=== PATIENT | female | born 1985 | race Caucasian/White ===

== ENCOUNTER → 2018-05-15 14:47 | Outpatient (CLI) | payer BC, SELFPAY ==
[2018-05-18 14:30] LABS: HPV Reflexed? NOT INDICATED
== END ==
PROVIDERS: Visit Provider Obstetrics & Gynecology
DX: Z12.4 Encounter for screening for malignant neoplasm of cervix (principal); Z12.72 Encounter for screening for malignant neoplasm of vagina
CPT/HCPCS: 88175; G0145

== ENCOUNTER → 2018-08-16 11:49 | Outpatient (CLI) | payer BC, SELFPAY ==
[2018-08-16 15:34] LABS: Chlamydia Trachomatis by PCR Negative (Negative); Neisserai gonorrhoeae by PCR Negative (Negative); Probe Check PASS; Sample Adequacy Control PASS; Specimen Processing Control PASS
== END ==
PROVIDERS: Visit Provider Obstetrics & Gynecology
DX: Z32.01 Encounter for pregnancy test, result positive (principal); Z11.3 Encounter for screening for infections with a predominantly sexual mode of transmission
CPT/HCPCS: 87491; 87591

== ENCOUNTER → 2018-08-28 11:42 | Outpatient (CLI) | payer BC, SELFPAY ==
[2018-08-28 12:20] LABS: COTININE Drug Screen Positive (<200 ng/mL)
[2018-08-28 12:21] LABS: Absolute Neutrophil Count 7.3 X10^3/uL (2.0-7.7); Basophil# 0.03 X10^3/uL; Basophil% 0.3 % (0-1); Eosinophil# 0.11 X10^3/uL; Eosinophils% 1.1 % (0-5); Hematocrit 39.9 % (37-47); Hemoglobin 13.4 g/dl (12.0-15.0); Lymphocyte % 21.7 % (19-41); Mean Corp Hgb Conc 33.6 g/gl (32-36); Mean Corpuscular Hgb 32.9 pg (27.0-32.0); Mean Platelet Vol. 9.7 fl (6.2-12.0); Monocyte# 0.47 X10^3/uL; Monocyte% 4.6 % (0-10); Neutrophil % 72.1 % (47-70); Platelet Count 231 K/mm3 (150-450); RBC Distribution Width CV 12.5 % (11.6-14.6); RBC Distribution Width SD 44.1 fl (35.1-43.9); Red Blood Count 4.07 M/mm3 (4.2-5.4); White Blood Count 10.1 K/mm3 (4.4-11.0)
[2018-08-28 12:22] LABS: Color, Urine Yellow (Yellow); Glucose, Dipstick Normal (Normal); Ketone-Dipstick Negative (Negative); Leukocyte Esterase-Dipstick 25 /ul (Negative); Nitrite-Dipstick Negative (Negative); Occult Blood-Urine Negative /ul (Negative); Protein-Dipstick Negative (Negative); Specific Gravity, Urine 1.005 (1.002-1.030); Urine Bilirubin Dipstick Negative (Negative); Urine Clarity Clear (Clear); Urine Urobilinogen Normal (Normal)
[2018-08-28 12:23] LABS: POSITIVE COUNT NO; POSITIVE DIFFERENTIAL NO; POSITIVE MORPHOLOGY NO
[2018-08-28 12:31] LABS: Amphetamine Urine VISTA NEGATIVE (<1000 ng/mL); Barbiturate Urine VISTA NEGATIVE (< 200 ng/mL); Benzodiazepine Urine VISTA NEGATIVE (< 200 ng/mL); Cocaine Urine VISTA NEGATIVE (< 300 ng/mL); Ecstacy Urine VISTA NEGATIVE (< 500 ng/mL); Methadone Urine VISTA NEGATIVE (< 300 ng/mL); PCP Urine VISTA NEGATIVE (< 25 ng/mL); THC Urine VISTA NEGATIVE (< 50 ng/mL); Vista UDS pH Range 7
[2018-08-28 12:50] LABS: Thyroid Stim Hormone (TSH) 1.29 uIU/mL (0.358-3.74)
[2018-08-28 13:29] LABS: HIV - WCH Non-Reactive (Nonreactive); Rubella IgG > 500.0 IU/mL
[2018-08-29 11:00] LABS: HEPATITIS B SURFACE AG Negative (Negative); Hep C Antibodies <0.1 s/co ratio (0.0-0.9)
[2018-08-31 04:13] LABS: Prenatal RPR NONREACTIVE (NONREACTIVE)
== END ==
PROVIDERS: Visit Provider Obstetrics & Gynecology
DX: Z34.81 Encounter for supervision of other normal pregnancy, first trimester (principal)
CPT/HCPCS: 36415; 80307; 81002; 84443; 85025; 86703; 86762; 86803; 87340

== ENCOUNTER → 2018-10-23 11:33 | Outpatient (CLI) | payer BC, SELFPAY ==
[2018-10-25 03:06] LABS: AFP MoM Value 1.15 (.); AFP Value-EIA 39.7 ng/mL (.); Comment Report (.); DIA MoM Value 2.42 (.); DSR (By Age) 273 (.); DSR (Second Trimester) 190 (.); Gestat. Age Based On As provided (.); Gestational Age 17.3 WEEKS (.); Insulin Dep Diabetes No (.); Maternal Age At EDD 35.4 yr (.); hCG MoM 1.37 (.); hCG Value 37142 mIU/mL (.)
--- OUTSIDE RECORDS SUMMARY | 2019-01-24 20:35 | XMS RPT_ITS ---
:1985 Author Organization [facility] Care Team Providers Name Role Phone STEPHANIE CEJA MD Admitting Unavailable STEPHANIE CEJA MD Attending Unavailable PHYSICIAN, NOT RECORDED Primary Care Unavailable Ayan Dillon Attending Unavailable Ermelinda Burden Attending Unavailable RomeTyler Attending Unavailable SealsAyan Attending Unavailable Seals, Ayan Attending Unavailable Seals, Ayan Attending Unavailable PROBLEMS PROBLEMS DATE TYPE CONDITION / CODE ATTENDING STATUS SOURCE 11/28/2018 Unknown F17.200 - Nicotine [place], Warnock Active [place] dependence, Community unspecified, Hospital uncomplicated / Repository F17.200(ICD-10) 11/28/2018 Unknown I34.1 - [place], Warnock Active [facility] Nonrheumatic mitral Community (valve) prolapse / Hospital I34.1(ICD-10) Repository 10/23/2018 Unknown Z34.82 - Encounter SealAyan colon for supervision of Community other normal Hospital , second Repository trimester / Z34.82(ICD-10) 08/29/2018 Unknown Z34.81 - Encounter SealAyan colon for supervision of Community other normal Hospital , first Repository trimester / Z34.81(ICD-10) 08/16/2018 Unknown Z11.3 - Encounter SealAyan colon for screening for Community infections with a Hospital predominantly Repository sexual mode of transmission / Z11.3(ICD-10) 08/16/2018 Unknown Z32.01 - Encounter SealAyan colon for test, Community result positive / Hospital Z32.01(ICD-10) Repository 05/15/2018 Unknown Z12.4 - Encounter SealAyan colon for screening for Community malignant neoplasm Hospital of cervix / Repository Z12.4(ICD-10) 05/15/2018 Unknown Z12.72 - Encounter SealAyan colon for screening for Community malignant neoplasm Hospital of vagina / Repository Z12.72(ICD-10) PROCEDURES PROCEDURES No Procedure Records FoundRESULTS RESULTS CARDIOLOGY VISIT Observed: 11/28/2018 Status: F Source: [place] REPORT 11:58 AM [facility] REPOSITORY [facility] [place] [address] OFFICE VISIT Date of Service: 11/28/18 MR#: [id number] Acct: [id number] Name: LUISA FRY Rep #: [id number] : 1985 Provider: Tyler Peter MD Age/Sex: 33/F Location: [facility] Status: Signed HPI HPI Chief Complaint: Initial visit Details: LUISA FRY, is a 33 F who presents to the office today for an evaluation. She does have a family history of coronary artery disease as well as her mother who had an abdominal aortic aneurysm repair. She denies any chest pain or shortness breath or paroxysmal nocturnal dyspnea or pedal edema she says that there is been a question about her being marfanoid but she has not had any testing to definitively confirm this. She is currently 21 weeks and being followed by the [facility]ER[facility] LINE OPERATOR. She has had no neck arm or jaw discomfort suggest angina. Her physical exam here today demonstrates clear lung rose regular rate and rhythm and no pedal edema her blood pressure is under excellent control and her EKG demonstrates normal sinus mechanism with no acute changes. Intake Vital Signs11/28/18 Height 6 ft 3 in 11/28/18 Weight: 179 lb 11/28/18 Body Mass Index (BMI) 22.4 11/28/18 Blood Pressure 102/56 L 11/28/18 Respiratory Rate 16 11/28/18 Pulse Rate 76 Intake Visit Reasons: OB ref'd for MVP, possible Marfan's syndrome Allergies Penicillins Adverse Reaction (Verified 11/28/18 09:35) LETHARGY Medications vitamin,calcium,wwajqvco-vbry-iokka acid tablet 1 tab PO DAILY 11/28/18 [History Confirmed 11/28/18] PFSH Medical History Marfan syndrome (Chronic) Non-rheumatic mitral regurgitation (Chronic) Nonrheumatic mitral (valve) prolapse (Chronic) Nicotine dependence (Chronic) Anxiety and depression (Chronic) Surgical History H/O LEEP (Resolved) Family History Mother Abdominal aortic aneurysm (AAA) repair x 1 Marfans syndrome Father Myocardial infarction [place] age 56 CVA (cerebral vascular accident) from CVA age 62 Heart disease PPM from a stroke at age 62 Social History Smoking Status: Light Smoker (<10/day) ROS Const Const: Negative for fatigue, weakness, difficulty sleeping, frequent falls, excessive sweating or headache(s) Eyes Eyes: Negative for loss of peripheral vision, transient loss of vision, blurry vision, tunnel vision or double vision ENT ENT: Negative for headache(s), dizziness, Nosebleed/epistaxis or balance problems Cardio Chest Pain: No Palpitations: Yes (At rest notes fast HR ) feels like its: fast Edema: None Muscle aches with walking: None Resp Respiratory: Negative for SOB with activity, SOB at rest, SOB orthopnea\SOB lying down, paroxysmal nocturnal dyspnea or Cough GI GI: Negative nausea, heartburn, black,tarry stools or vomiting : Negative for hematuria Musc Musc: Negative for balance problems, muscle aches/ myalgia, muscle weakness or joint pain Skin Skin: Negative non-healing lesions, unusual bruising or rash Neuro Neuro: Negative for weakness, frequent falls, headache(s), blurry vision, double vision, dizziness, lightheadedness, orthostatic symptoms, near syncope, syncope or lack of coordination Moise Hematologic/Lymphatic: Negative for easy bruising or easy bleeding Endo Endo: Negative for fatigue, excessive sweating or increased thirst/drinking Psych Psych: Negative for anxiety or depression Allergy Allergy/Immunology: Negative for hives, Negative for rash Cardiology Exam Const Appearance: cooperative, healthy appearing, well developed, well groomed and no acute distress Nutritional Appearance: well nourished and average body habitus Orientation: alert, awake and oriented x3 Head Head: normal to inspection, normocephalic and atraumatic Ears: hearing grossly normal bilaterally and external ears normal Nose: external nose normal, nasal mucous membranes and turbinates normal, nares normal, septum normal, no nasal discharge Face and Sinus: face symmetric Mouth: oral mucosae normal, tongue normal, oropharynx normal and moist mucous membranes Teeth and gingiva: dentition normal Throat: posterior oropharynx normal, tonsils normal and uvula midline Eyes General: appearance normal, both eyes and all related structures Eyelids: eyelids normal Conjunctivae: conjunctivae normal Pupils: PERRL, normal by confrontation and accommodation normal EOM: EOM intact bilaterally Neck Neck: normal visual inspection, trachea midline and no JVD JVD: +5 Carotids: normal carotid upstroke and bounding pulses Chest Chest inspection: normal inspection of the chest, symmetric chest movement and normal respiratory effort Auscultation: Bilateral: Clear to Auscultation Cardio Palpation: normal PMI Rate: regular rate Rhythm: regular rhythm Heart sounds: S1 normal, S2 normal and normal, physiologic split S2; negative rub, gallop or murmur GI GI: normal to inspection, soft, no hepatosplenomegaly and bowel sounds present Neuro General: alert, awake, oriented x3, no focal sensory deficit, gait normal and moves all extremities Skin Skin: no rashes or lesions noted Extremities Pulses: Normal: Right Femoral Pulse, Left Femoral Pulse, Right Dorsalis Pedis Pulse, Left Dorsalis Pedis Pulse, Right Posterior Tibial Pulse, Left Posterior Tibial Pulse, Right Radial Pulse, Left Radial Pulse Lower Extremity Edema: None: Bilateral Musculoskel Musculoskeletal: No joint tenderness Psych Psychological: normal affect Assessment AND Plan 1. Nonrheumatic mitral (valve) prolapse I34.1 Plan Her clinical exam appears to be stable with no obvious clinical mitral valve prolapse or marfanoid symptomatology. My recommendation will be to obtain an echocardiogram to assess her mitral valve as well as aortic root. Due to her I have emphasized smoking cessation as you have as well. I do not think that there is any other intervention that we need to proceed with at this time. Certainly we should monitor her blood pressure throughout her . Depending on the results of her echocardiogram further recommendations will be made. Thank you for allowing me to participate in the care of your patient. Please don't hesitate to call if any issues arise Orders Orders: Plan Detail Other Orders Orders: Follow Up 9 9 Months (drawstring knotter) Coding Level of Care Code Off vis,new,level 4 Diagnoses Nonrheumatic mitral (valve) prolapse I34.1 Coding Level of Care Code Off vis,new,level 4 Diagnoses Nonrheumatic mitral (valve) prolapse I34.1 Supplemental Info Supplemental Information Diagnostics Electrocardiogram 11/28/18 11/28/18 1158 <Electronically signed by Tyler Peter MD> Date Tyler Peter MD Cosigner Signature: Date (if applicable) CC: Ayan Dillon MD 12 LEAD EKG PERFORMED Observed: 11/28/2018 Status: F Source: [place] BY [facility] 11:19 AM [facility] REPOSITORY [facility] [address] [facility] [place] [address] 12 Lead EKG performed by [facility] 11/28/18 1116 MR#: [id number] Acct: [id number] Name: LUISA FRY Rep #: [id number] : 1985 33 From: Tyler Peter MD Attending Dr: Tyler Peter MD Status: DEP AMB Ordering Dr: Tyler Peter MD Date: 11/28/18 Location: [facility] Sex: F C Admitted: BMS/12 Lead EKG performed by [facility] Sinus Rhythm WITHIN NORMAL LIMITS 11/28/18 1602 <Electronically signed by Tyler Peter MD> Date Tyler Peter MD CC: Date Dictated: 11/28/18 1116 Date Transcribed: 11/28/181115 Gas Operation Manager: [place] Signed AFP TETRA QUAD Collected: 10/23/2018 Status: F Source: [place] SCREEN 11:34 AM [facility] REPOSITORY Order Comment: Is Patient ? Y Enter Completed Weeks of Gestation: 17.3 Patient's Weight (LBS.): 175 Race: / White Number of Fetuses: 1 Is Patient Insulin-Dependent Diabetic?: N TYPE CODE TESTS RESULT OUT OF REFERENCE UNITS RANGE LAB L3290.110 . 0 TEST RESULTS: High *Screen Positive* LAB L3290.120 . WEEKS 0 GESTATIONAL AGE Normal 17.3 LAB L3290.130 . 0 GEST AGE FROM As Normal provided LAB L3290.140 . yr 1 MATRNL AGE @GILES Normal 35.4 LAB L3290.150 . 0 RACE Normal LAB L3290.160 . lbs 0 WEIGHT Normal 175 LAB L3290.170 . 0 INS DEP DIABETE No Normal LAB L3290.180 . 0 MULT GESTATION No Normal LAB L3290.190 . ng/mL 0 AFP VALUE-EIA Normal 39.7 LAB L3290.200 . 0 AFP MOM VALUE Normal 1.15 LAB L3290.210 . mIU/mL 0 HCG VALUE Normal 22171 LAB L3290.220 . 0 HCG MOM Normal 1.37 LAB L3290.230 . ng/mL 0 UE3 VALUE Normal 1.03 LAB L3290.240 . 0 UE3 MOM Normal 0.97 LAB L3290.250 . pg/mL 0 HOME VALUE-EIA Normal 368.19 LAB L3290.260 . 0 HOME MOM VALUE Normal 2.42 LAB L3290.270 . 0 OSBR RISK Normal 7603 LAB L3290.280 . 0 DSR 2ND TRIMEST Normal 190 LAB L3290.290 . 0 DSR (BY AGE) Normal 273 LAB L3290.310 . 0 T18 RISK Normal Not increased LAB L3290.320 . 0 T18 (BY AGE) Normal 1:1064 LAB L3290.330 . 0 INTERPRETATION Normal Comment Result Comment: Interpretation: Screen Positive for Down Syndrome This patient is at increased risk to have a baby with Down Syndrome. The Down Syndrome risk was calculated using the gestational age provided, maternal age, AFP, hCG, uE3 and HOME values. Approximately 75-80% of Down Syndrome can be detected by this test. This result is screen negative for open spina bifida. This test can identify up to 80% of open neural tube defects. Closed neural tube defects and some open defects may not be detected by this test. This test can identify approximately 60% of Trisomy 18. Recommendations: 1. Targeted ultrasound to confirm gestational age and rule out anomalies. 2. Do not repeat test. Repeating the test can result in false negatives. 3. Genetic counseling and amniocentesis are appropriate options. Recalculations are not recommended when gestational dating by LMP and ultrasound are within 10 days. Performed By: #### L3290.0100 #### [facility] (refer to report for specific site) refer to report for address and phone number URINE DRUG SCREEN Collected: 08/28/2018 Status: F Source: [place] (VISTA) 11:46 AM [facility] REPOSITORY Order Comment: List of Drugs Taken or Suspected? UNK TYPE CODE TESTS RESULT OUT OF RANGE REFERENCE UNITS LAB L505.0075 TO BE Normal CONFIRMED Result Comment: CONFIRMATORY TESTING FOR ALL POSITIVE URINE DRUG SCREEN RESULTS WILL ONLY BE SENT OUT UPON PHYSICIAN ORDER. VISTA Urine Drug Screen methods provide only preliminary analytical test results. A more specific alternate chemical method must be used in order to obtain a confirmed analytical result. Gas chromatography/mass spectrometery (GC/MS) is the preferred confirmatory method. Clinical consideration and professional judgement should be applied to any drug of abuse test result, particularly when preliminary positive results are used. URINE TCA TESTING MUST BE ORDERED SEPARATELY. USE TEST MNEMONIC: [facility] LAB L505.5005 VISTA UDS PH 7 Normal LAB L505.5015 <1000 ng/mL AMPHETAMINES Normal NEGATIVE LAB L505.5025 < 200 ng/mL BARBITIURATES Normal NEGATIVE LAB L505.5035 < 200 ng/mL BENZODIAZIPINE Normal NEGATIVE LAB L505.5045 < 300 ng/mL COCAINE Normal NEGATIVE LAB L505.5055 < 500 ng/mL ECSTACY Normal NEGATIVE LAB L505.5065 < 300 ng/mL METHADONE Normal NEGATIVE LAB L505.5075 < 300 ng/mL OPIATES Normal NEGATIVE LAB L505.5085 < 25 ng/mL PCP Normal NEGATIVE LAB L505.5095 < 50 ng/mL THC Normal NEGATIVE Performed By: #### L505.5000, L505.6240 #### [facility] [address] [place], [address] NICOTINE URINE DRUG Collected: 08/28/2018 Status: F Source: [place] SCREEN 11:46 AM [facility] REPOSITORY Order Comment: List of Drugs Taken or Suspected? UNK TYPE CODE TESTS RESULT OUT OF RANGE REFERENCE UNITS LAB L505.6250 TO BE Normal CONFIRMED Result Comment: CONFIRMATORY TESTING FOR ALL POSITIVE URINE DRUG SCREEN RESULTS WILL ONLY BE SENT OUT UPON PHYSICIAN ORDER. The results of Urine Drug Screen methods provide only preliminary analytical test results. A more specific alternate chemical method must be used in order to obtain a confirmed analytical result. Gas chromatography/mass spectrometery (GC/MS) is the preferred confirmatory method. Clinical consideration and professional judgement should be applied to any drug of abuse test result, particularly when preliminary positive results are used. LAB L505.6270 <200 ng/mL High COT DRG Positive SCREEN Result Comment: Cotinine is the first-stage metabolite of Nicotine. Performed By: #### L505.5000, L505.6240 #### [facility] [address] [facility] [place], [address] CBC W/DIFF, AUTOMATED Collected: 08/28/2018 Status: F Source: [place] 11:46 AM [facility] REPOSITORY TYPE CODE TESTS RESULT OUT OF RANGE REFERENCE UNITS LAB L100.1000 4.4-11.0 K/mm3 Normal WBC 10.1 LAB L100.1200 4.2-5.4 M/mm3 Low RBC 4.07 LAB L100.1300 12.0-15.0 g/dl Normal HGB 13.4 LAB L100.1400 37-47 % Normal HCT 39.9 LAB L100.1500 81-99 fL Normal MCV 98.0 LAB L100.1600 27.0-32.0 pg High MCH 32.9 LAB L100.1700 32-36 g/gl Normal MCHC 33.6 LAB L100.1810 11.6-14.6 % Normal RDW CV 12.5 LAB L100.1820 35.1-43.9 fl High RDW SD 44.1 LAB L100.1900 150-450 K/mm3 Normal PLT 231 LAB L100.2000 6.2-12.0 fl Normal MPV 9.7 LAB L100.2100 47-70 % High NEUT% 72.1 LAB L100.2200 19-41 % Normal LY% 21.7 LAB L100.2300 0-10 % Normal MONO% 4.6 LAB L100.2400 0-5 % Normal EO% 1.1 LAB L100.2500 0-1 % Normal BASO% 0.3 LAB L100.2550 0.0-0.9 % Normal IM GRAN % 0.200 Result Comment: IG% - Immature Granulocytes (promyelocytes, myelocytes and metamyelocytes) > 1% indicates that a LEFT SHIFT is Present. LAB L100.2620 2.0-7.7 X10 3/uL Normal Absolute Neut 7.3 LAB L100.2720 0.83-4.51 X10 3/ul Normal Absolute Lymph 2.20 Performed By: #### L100.0100 #### [facility] [address] [place], [place], [address] URINALYSIS, ROUTINE Collected: 08/28/2018 Status: F Source: [place] (DIPSTICK) 11:46 AM [facility] REPOSITORY Order Comment: How was Urine Obtained? Urine, Random TYPE CODE TESTS RESULT OUT OF RANGE REFERENCE UNITS LAB L400.3000 Yellow COLOR Normal Yellow LAB L400.3050 Clear Normal CLARITY Clear LAB L400.3200 Normal mg/dl Normal GLUCOSE, UR Normal LAB L400.3300 Negative mg/dL Normal BILIRUBIN URINE Negative LAB L400.3400 Negative mg/dl Normal KETONE UR Negative LAB L400.3465 1.002-1.030 Normal SP.GR. DIPSTX 1.005 LAB L400.3550 5.0 - 8.0 pH UR Normal 7.0 LAB L400.3600 Negative mg/dl PROT Normal DIPSTX Negative LAB L400.3700 Normal mg/dl Normal UROBILI Normal LAB L400.3750 Negative Normal NITRITE UR Negative LAB L400.3780 Negative /ul Normal OCCULT BLOOD-UR Negative LAB L400.3800 Negative /ul High LEUK 25 ESTERASE Performed By: #### L400.2010 #### [facility] [address] [facility] [place], [place], [address] THYROID STIM HORMONE Collected: 08/28/2018 Status: F Source: [place] (TSH) 11:46 AM [facility] REPOSITORY TYPE CODE TESTS RESULT OUT OF RANGE REFERENCE UNITS LAB L501.9520 0.358-3.74 uIU/mL Normal TSH 1.29 Performed By: #### L501.9520 #### [facility] [address] [facility] [place], [address] RUBELLA IGG Collected: 08/28/2018 Status: F Source: [place] 11:46 AM [facility] REPOSITORY TYPE CODE TESTS RESULT OUT OF RANGE REFERENCE UNITS LAB L509.4000 IU/mL Normal Rubella IgG > 500.0 Result Comment: Antibody results Interpretation of Immune Status < 5 IU/ml Presumed Non-immune 5 - < 10 IU/ml Equivocal > or = 10 IU/ml Presumed Immune Performed By: #### L509.4000, L3890.6005 #### [facility] [address] [facility] [address] [place], [place], [address] HIV - WCH Collected: 08/28/2018 Status: F Source: [place] 11:46 AM [facility] REPOSITORY TYPE CODE TESTS RESULT OUT OF RANGE REFERENCE UNITS LAB L3890.6005 Nonreactive Normal HIV - WCH Non-Reactive Performed By: #### L509.4000, L3890.6005 #### [facility] [address] [facility] [place], [address] T AND S-NO Collected: 08/28/2018 Status: F Source: [place] CHARGE W/PNP 11:46 AM [facility] REPOSITORY Order Comment: Reason for Type AND Screen/Red Cells: Surgery? N TYPE CODE TESTS RESULT OUT OF RANGE REFERENCE UNITS LAB B10.0800 O Normal BLOOD POSITIVE TYPE GEL LAB B100.4050 Normal Ab SCREEN NEGATIVE GEL Performed By: #### B100.7550 #### [facility] [address] [place], [place], [id number] HEPATITIS B SURFACE Collected: 08/28/2018 Status: F Source: [place] AG 11:46 AM [facility] REPOSITORY TYPE CODE TESTS RESULT OUT OF RANGE REFERENCE UNITS LAB L3100.0400 Negative Normal HB Negative SURF AG Result Comment: Performed at: [facility] [id number] Network Analyst: Alden Gastelum PhD, Phone: [phone] Performed By: #### L3100.0390, L3100.0625 #### [facility] (refer to report for specific site) refer to report for address and phone number HEPATITIS C ANTIBODIES Collected: 08/28/2018 Status: F Source: [place] 11:46 AM [facility] REPOSITORY TYPE CODE TESTS RESULT OUT OF RANGE REFERENCE UNITS LAB L3100.0650 0.0-0.9 s/co ratio Normal HEP C AB <0.1 Result Comment: Negative: < 0.8 Indeterminate: 0.8 - 0.9 Positive: > 0.9 The CDC recommends that a positive HCV antibody result be followed up with a HCV Nucleic Acid Amplification test (469737). Performed By: #### L3100.0390, L3100.0625 #### [facility] (refer to report for specific site) refer to report for address and phone number RPR Collected: 08/28/2018 Status: F Source: [place] 11:46 AM [facility] REPOSITORY TYPE CODE TESTS RESULT OUT OF REFERENCE UNITS RANGE LAB L700.5100 NONREACTIVE Normal RPR NONREACTIVE Performed By: #### L700.5100 #### [facility] [place], [place], [id number] CT/NG WCH BY PCR Collected: 08/16/2018 Status: F Source: [place] 11:30 AM [facility] REPOSITORY TYPE CODE TESTS RESULT OUT OF RANGE REFERENCE UNITS LAB L8200.2100 Negative Normal Chlam Negative Trac PCR LAB L8200.2200 Negative Normal NG by Negative PCR Performed By: #### L8200.2000 #### [facility] [address] [facility] [place], [place], [id number] PAP I-G W/RFX HRHPV Collected: 05/15/2018 Status: F Source: [place] 11:30 AM [facility] REPOSITORY Order Comment: CYTOLOGY INFORMATION: - CLINICAL INFORMATION: - DATE LMP/MENOPAUSE: 04-28-18 LMP - COLLECTION VIAL: Thin Prep Vial - ORCHESTRA LEADER SOURCE: CERVICAL/ENDOCERVICAL - COLLECTION TECHNIQUE: BRUSH/SPATULA Specimen Comment: [id number] Specimen Comment: No. of containers..01 ThinPrep Vial TYPE CODE TESTS RESULT OUT OF RANGE REFERENCE UNITS LAB L7400.0800 . Normal DIAGN Comment Result Comment: NEGATIVE FOR INTRAEPITHELIAL LESION AND MALIGNANCY. LAB L7400.0900 . Normal ADEQ Comment Result Comment: Satisfactory for evaluation. Endocervical and/or squamous metaplastic cells (endocervical component) are present. LAB L7400.1400 . Normal PERFORM Comment Result Comment: Luisa Shelton, Drawer Maker (ASCP) LAB L7400.2575 . Normal TEST METHOD Comment Result Comment: This liquid based ThinPrep(R) pap test was screened with the use of an image guided system. LAB L7400.2600 . Normal . COMM LAB L7400.2700 . Normal PAPSMR Comment Result Comment: The Pap smear is a screening test designed to aid in the detection of premalignant and malignant conditions of the uterine cervix. It is not a diagnostic procedure and should not be used as the sole means of detecting cervical cancer. Both false-positive and false-negative reports do occur. LAB L7400.2800 . Normal HPV RFLX Comment Result Comment: The HPV DNA reflex criteria were not met with this specimen result therefore, no HPV testing was performed. Performed at: - [facility] [id number] Network Analyst: Summer Huff MD, Phone: [phone] Performed By: #### L7400.0350 #### [facility] (refer to report for specific site) refer to report for address and phone number CBC Collected: 05/02/2018 Status: F Source: [facility] 7:57 AM [facility] REPOSITORY TYPE CODE TESTS RESULT OUT OF REFERENCE UNITS RANGE LAB WBC(LOINC) 4.50-10.80 10 3/mcL WBC 6.00 LAB RBCCT(LOINC 4.10-5.30 10 6/mcL ) RBC 4.54 LAB HGB(LOINC) 12.0-16.0 G/dL Hgb 14.8 LAB HCT(LOINC) 34.0-46.0 % Hct 44.0 LAB MCV(LOINC) 80.0-99.0 fL MCV 96.8 LAB MCH(LOINC) 27.0-33.0 pg MCH 32.5 LAB MCHC(LOINC) 32.0-36.0 G/dL MCHC 33.6 LAB RDW(LOINC) 11.5-15.5 % RDW 13.1 LAB PLT(LOINC) 150-450 10 3/mcL Platelet 246 LAB MPV(LOINC) 6.6-10.5 fL MPV 7.9 Performed By: #### CBC, ADIFF, ANEU, TSH, T4, CMP, GFR #### [address] [address] .AUTO DIFF Collected: 05/02/2018 Status: F Source: [facility] 7:57 AM [facility] REPOSITORY TYPE CODE TESTS RESULT OUT OF REFERENCE UNITS RANGE LAB MOHSEN(LOINC) 50.0-75.0 % Neutrophil % 53.1 LAB LYM(LOINC) 20.0-40.0 % Lymphocyte % 37.8 LAB MON(LOINC) 2.0-13.0 % Monocyte % 6.6 LAB EO(LOINC) 0.0-6.0 % Eosinophil % 1.8 LAB BAS(LOINC) 0.0-2.5 % Basophil % 0.7 LAB ABLYM(LOIN 0.90-4.32 10 3/mcL C) Lymphocyte, 2.30 Absolute LAB IZZY(LOINC 0.09-1.40 10 3/mcL ) Monocyte, 0.40 Absolute LAB AEOS(LOINC 0.00-0.65 10 3/mcL ) Eosinophil, 0.10 Absolute LAB ABAS(LOINC 0.00-0.27 10 3/mcL ) Basophil, 0.00 Absolute Performed By: #### CBC, ADIFF, ANEU, TSH, T4, CMP, GFR #### [address] [address] .NEUABS Collected: 05/02/2018 Status: F Source: [facility] 7:57 AM [facility] REPOSITORY TYPE CODE TESTS RESULT OUT OF REFERENCE UNITS RANGE LAB ANEU(LOINC) 2.25-8.10 10 3/mcL Neutrophil, 3.20 Absolute Performed By: #### CBC, ADIFF, ANEU, TSH, T4, CMP, GFR #### [address] [address] TSH Collected: 05/02/2018 Status: F Source: [facility] 7:57 AM [facility] REPOSITORY TYPE CODE TESTS RESULT OUT OF RANGE REFERENCE UNITS LAB TSH(LOINC) 0.360-3.740 mcIU/mL TSH 1.380 Result Comment: Please note ? as of 05/20/17 new pediatric reference intervals were added for this test. Performed By: #### CBC, ADIFF, ANEU, TSH, T4, CMP, GFR #### [address] [address] T4 Collected: 05/02/2018 Status: F Source: [facility] [facility] 7:57 AM [facility] REPOSITORY TYPE CODE TESTS RESULT OUT OF RANGE REFERENCE UNITS LAB T4(LOINC) 4.7-11.4 mcg/dL T4 9.2 Result Comment: Please note ? as of 05/20/17 new pediatric reference intervals were added for this test. Performed By: #### CBC, ADIFF, ANEU, TSH, T4, CMP, GFR #### [place] [id number] CMP Collected: 05/02/2018 Status: F Source: [facility] 7:57 AM [facility] REPOSITORY TYPE CODE TESTS RESULT OUT OF REFERENCE UNITS RANGE LAB GLU(LOINC) 70-110 mg/dL Glucose Level 106 LAB NA(LOINC) 136-145 mEq/L Sodium Level 141 LAB K(LOINC) 3.5-5.0 mEq/L Potassium Level 4.2 LAB CL(LOINC) 98-110 mEq/L Chloride 107 LAB CO2(LOINC) 22-32 mEq/L CO2 28 LAB EBAL(LOINC 4.0-15.0 mEq/L ) Electrolyte Balance 6.0 LAB BUN(LOINC) 8.0-22.0 mg/dL Low BUN 7.0 LAB CRE(LOINC) 0.50-1.20 mg/dL Creatinine Lvl (s) 0.77 LAB BC(LOINC) 10.0-22.0 ratio Low BUN/Creatinine 9.1 Ratio LAB CA(LOINC) 8.4-10.1 mg/dL Calcium Lvl 9.0 LAB PROT(LOINC 6.0-8.5 G/dL ) Total Protein 6.7 LAB ALB(LOINC) 3.2-4.8 G/dL Albumin Level 3.8 LAB GLB(LOINC) 1.5-3.8 G/dL Globulin 2.9 LAB AG(LOINC) 0.9-1.6 ratio A/G Ratio 1.3 LAB BILT(LOINC 0.2-1.2 mg/dL ) Bili Total 0.3 LAB AP(LOINC) 38-126 U/L Alk Phos 43 LAB AST(LOINC) 8-34 U/L AST/SGOT 11 LAB ALT(LOINC) 10-49 U/L ALT/SGPT 13 Performed By: #### CBC, ADIFF, ANEU, TSH, T4, CMP, GFR #### [place] [address] .GFR Collected: 05/02/2018 Status: F Source: [facility] 7:57 AM [facility] REPOSITORY TYPE CODE TESTS RESULT OUT OF REFERENCE UNITS RANGE LAB GFRAA(LOINC ml/min/1.73 ) sqm GFR >60 Vincentian Result Comment: GFR Population mean for , Non- Americans Ages 20-29 = 116 mL/min/1.73 sq.m. Ages 30-39 = 107 mL/min/1.73 sq.m. Ages 40-49 = 99 mL/min/1.73 sq.m. Ages 50-59 = 93 mL/min/1.73 sq.m. Ages 60-69 = 85 mL/min/1.73 sq.m. Ages 70+ = 75 mL/min/1.73 sq.m. Chronic Kidney Disease: Less than 60 mL/min/1.73 square meters End Stage Renal Disease: Less than 15 mL/min/1.73 square meters LAB GFRNO(LOINC) ml/min/1.73sqm GFR Non- >60 Result Comment: GFR Population mean for , Non- Americans Ages 20-29 = 116 mL/min/1.73 sq.m. Ages 30-39 = 107 mL/min/1.73 sq.m. Ages 40-49 = 99 mL/min/1.73 sq.m. Ages 50-59 = 93 mL/min/1.73 sq.m. Ages 60-69 = 85 mL/min/1.73 sq.m. Ages 70+ = 75 mL/min/1.73 sq.m. Chronic Kidney Disease: Less than 60 mL/min/1.73 square meters End Stage Renal Disease: Less than 15 mL/min/1.73 square meters Performed By: #### CBC, ADIFF, ANEU, TSH, T4, CMP, GFR #### [place] [address] PREGU Collected: 05/01/2018 Status: F Source: [facility] 11:57 AM [facility] REPOSITORY TYPE CODE TESTS RESULT OUT OF RANGE REFERENCE UNITS LAB PREGU(LOIN C) Test Negative Urine LAB PRUG1(LOIN C) Unknown test HCG not (u) int detected. Performed By: #### PREGU #### [place] [address] ERDS Collected: 04/30/2018 Status: F Source: [facility] 11:37 PM [facility] REPOSITORY TYPE CODE TESTS RESULT OUT OF RANGE REFERENCE UNITS LAB ERSDS(MAHAMED NC) ER Drug Screen Unknown (s) Positive LAB ERSDSI(LO INC) ER Drug Screen Unknown Interp The serum shows evidence of: _ LAB SALIC(MAHAMED 10.0-25.0 mg/dL NC) Low Salicylate Lvl (ds) 5.9 LAB CD:049182 mg/dL 5(LOINC) Ethanol Level <10.0 LAB ACET(LOIN 10.0-30.0 mcg/mL C) Low Acetaminophen (ds) <2.0 LAB STCA(LOIN ng/mL C) TCA (s) NEG LAB SDS1(LOIN C) ER Serum Drugs Screened: See Below Result Comment: This drug screen is a presumptive screening only. No confirmation will be performed unless requested. Drugs included in the ER serum drug screen are: Threshold Ethanol 10.0 mg/dL Salicylate 2.0 mg/dL Acetaminophen 2.0 mcg/mL Tricyclic Antidepressants 300 ng/mL Testing has been performed FOR MEDICAL PURPOSES ONLY. Performed By: #### ERDS #### [address] [address] U ERDS Collected: 04/30/2018 Status: F Source: [facility] 11:37 PM [facility] REPOSITORY TYPE CODE TESTS RESULT OUT OF RANGE REFERENCE UNITS LAB ERUDS(LOIN C) ER U Drug Negative Screen LAB ERUDS1(MAHAMED NC) Unknown Urine ER U Drug shows no Screen evidence of Interp drugs routinely screened. LAB SDS2(LOINC ) See U ER Below Drugs Screened: Result Comment: This drug screen is a presumptive screening only. No confirmation will be performed unless requested. Drugs included in the ER urine drug screen are: Threshold Amphetamine/Methamphetamine 1000 ng/mL Barbiturates 200 ng/mL Benzodiazepine metabolites 200 ng/mL Cannabinoids (THC metabolites) 50 ng/mL Benzoylecognine (cocaine met) 300 ng/mL Opiates 300 ng/mL Phencyclidine (PCP) 25 ng/mL Testing has been performed FOR MEDICAL PURPOSES ONLY. Performed By: #### UERDEB #### [facility] [address] [place] [address] ALLERGIES ALLERGIES DATE TYPE / CODE NAME / CODE REACTION SEVERITY SOURCE 11/28/2018 Drug Penicillins/ lethargy Unknown [facility] Allergy/4160 [id number]([facility] 39863(SNOMED XNORM) Repository CT) ENCOUNTERS ENCOUNTERS ADMIT/DISCHARGE ACCOUNT NUMBER ADMITTING ENCOUNTER LOCATION SOURCE CLASS 11/28/2018/11/28/19 [id number] Ambulatory BMSBuilding: [place] [facility] Repository 11/22/2018 [id number] Ambulatory BMSBuilding: [place] [facility] Repository 10/23/2018 [id number] Ambulatory [facility] ding:WOBLAB Repository 08/28/2018 [id number] Ambulatory [facility] ding:WOBLAB Repository 08/16/2018 [id number] Ambulatory [facility] ding:LABSPEC Repository 05/15/2018 [id number] Ambulatory [facility] ding:LABSPEC Repository 04/30/2018/05/02/20 [id number] MARCIAL VENEGAS, Inpatient PBuilding:YESY [place] Encounter YRoom: [facility] 6505Bed: A Foundation Repository PAYERS PAYERS ENCOUNTER GUARANTOR PAYER SUBSCRIBER SOURCE 11/28/2018 LUISA Primary EMILIO [place] [id number] Insurance:ANTHEMPolicy FRANKSDOB: [facility] Number: [id number] [id number] Repository [address]Hbl: [phone]) Date:3317-83-06FO [phone] () [id number], [place] [address]ZR: 11/28/2018 Secondary LUISA [place] Insurance:MEDICAIDPoli BONECUTTERDOB: [facility] Number: [id number] [facility] [id number] Repository Date:2018-11-21 11/28/2018 Tertiary NOT GIVENUNK [place] Insurance:SELF PAY [facility] Number: Effective Repository Date:2018-11-27 11/22/2018 LUISA Primary EMILIO [place] [id number] Insurance:ANTHEMPolicy FRANKSDOB: [facility] Number: [id number] [id number] Repository [address]Ask: [phone]) Date:1492-43-09LS [phone] () [id number] MOODY [address]UL: 11/22/2018 Secondary NOT GIVENUNK [place] Insurance:SELF PAY [facility] Number: Effective Repository Date:2018-11-22 10/23/2018 LUISA Primary EMILIO [place] [id number] Insurance:ANTHEMPolicy FRANKSDOB: [facility] Number: [id number] [id number] Repository [address]Vck: ([phone]) Date:4363-65-04LN [phone] () 215[address]BSHCEQK, [place] [address]XJ: 10/23/2018 Secondary NOT GIVENUNK [place] Insurance:SELF PAY [facility] Number: Effective Repository Date:2018-10-23 08/28/2018 LUISA Primary EMILIO [place] [id number] Insurance:ANTHEMPolicy FRANKSDOB: [facility] Number: [id number] [id number] Repository [address]Hxy: ([phone]) Date:4448-20-46DU [phone] () [id number] [place] [address]NO: 08/28/2018 Secondary NOT GIVENUNK [place] Insurance:SELF PAY [facility] Number: Effective Repository Date:2018-08-28 08/16/2018 Luisa Primary Emilio [place] [id number] Insurance:ANTHEMPolicy FranksDOB: [facility] Number: [id number] [place], [place] [id number] Repository [address]Wya: ([phone]) Date:4937-80-45GL [phone] () [id number] [place] [address]GL: 08/16/2018 Secondary NOT GIVENUNK [place] Insurance:SELF PAY [facility] Number: Effective Repository Date:2018-08-16 05/15/2018 Luisa Primary Emilio [place] [id number] Insurance:ANTHEMPolicy FranksDOB: [facility] Number: [id number] [place] [id number] Repository [address]Blj: ([phone]) Date:8700-76-89MI [phone] () [id number] [place] [address]TK: 05/15/2018 Secondary NOT GIVENUNK [place] Insurance:SELF PAY [facility] Number: Effective Repository Date:2018-05-15 04/30/2018 [facility]:ANTHEM BLUE FRANKSDOB: Foundation [id number] CROSS COMMERCIALPolicy [id number] Repository [facility] Number: [address] [place], [place] [id number] [place] [address]~ERINBONECU Date:2018-04-30Tel: [phone] [email or web address] [id number] [phone] l: [phone] Name:CINDY HERNANDEZ (HP) (HP) [id number], [place] [phone] () [address]YQ:
== END ==
PROVIDERS: Visit Provider Obstetrics & Gynecology
DX: Z34.82 Encounter for supervision of other normal pregnancy, second trimester (principal)
CPT/HCPCS: 36415; 82105; 82677; 84702; 86336

== ENCOUNTER → 2018-12-19 09:50 | Outpatient (CLI) | payer BC, MEDICAID, SELFPAY ==
[2018-11-28 09:35] VITALS: BMI 22.4
--- NOTE | 2018-12-19 09:54 | ECHOD_ITS ---
Version 2 Left Ventricle Upper normal LV size. The estimated ejection fraction is 53 %. No regional wall motion abnormalities noted. Right Ventricle Normal RV size. Normal systolic function. Atria Normal left atrium. Normal right atrium. Mitral Valve Equivocal mitral valve prolapse. Tricuspid Valve Normal tricuspid valve. Aortic Valve Trisinus/trileaflet aortic valve. Pulmonic Valve Normal pulmonic valve. Great Vessels Normal aortic root. The pulmonary artery is normal size. Normal inferior vena cava. Pericardium/Pleural No pericardial effusion. MMode/2D Measurements & Calculations LVIDd: 5.8 cm IVSd: 0.79 cm Ao root diam: 3.1 cm LVIDs: 4.3 cm LVPWd: 0.69 cm RVDd: 3.7 cm FS: 25.4 % LAV(MOD-bp): 61.7 ml LVAd ap4: 45.0 cm2 SV(MOD-sp4): 96.7 ml LAV(MOD-bp) Indexed: 29.5 ml/m2 EDV(MOD-sp4): 167.5 ml LAV(MOD-sp2): 73.4 ml EDV(sp4-el): 172.0 ml LAV(MOD-sp4): 51.1 ml LVAs ap4: 25.7 cm2 ESV(MOD-sp4): 70.8 ml ESV(sp4-el): 70.5 ml EF(MOD-sp4): 57.7 % EF(sp4-el): 59.0 % SV(sp4-el): 101.5 ml LA dimension(2D): 3.8 cm LA A4 area: 19.0 cm2 RA A4 area: 15.8 cm2 Time Measurements MV dec time: 0.26 sec Doppler Measurements & Calculations MV E max harinder: 91.6 cm/sec Ao V2 max: 133.0 cm/sec LV V1 max: 100.7 cm/sec MV A max harinder: 55.5 cm/sec Ao max P.1 mmHg LV V1 max P.1 mmHg MV E/A: 1.7 PA V2 max: 103.4 cm/sec PI end-d harinder: 78.2 cm/sec Interpretation Summary Upper normal LV size The estimated ejection fraction is 53 %. No regional wall motion abnormalities noted. Equivocal mitral valve prolapse. The global longitudinal strain = -18.4 % (normal). Ordering Physician: Tyler Peter Referring Physician: Tyler Peter
== END ==
PROVIDERS: Referring Provider Internal Medicine Cardiovascular Disease; Visit Provider Internal Medicine Cardiovascular Disease
DX: I34.1 Nonrheumatic mitral (valve) prolapse (principal)
CPT/HCPCS: 93306

== ENCOUNTER → 2019-01-10 11:00 | Outpatient (CLI) | payer BC, MEDICAID, SELFPAY ==
[2018-11-28 09:35] VITALS: BMI 22.4
[2019-01-10 13:49] LABS: Hematocrit 40.4 % (37-47); Mean Corp Hgb Conc 32.2 g/gl (32-36); Mean Corpuscular Hgb 32.7 pg (27.0-32.0); Mean Corpuscular Volume 101.8 fL (81-99); Mean Platelet Vol. 9.5 fl (6.2-12.0); Platelet Count 337 K/mm3 (150-450); RBC Distribution Width CV 12.7 % (11.6-14.6); Red Blood Count 3.97 M/mm3 (4.2-5.4); White Blood Count 11.4 K/mm3 (4.4-11.0)
[2019-01-10 13:52] LABS: Glucose Challenge Gest 1H 50g 77 mg/dL (70-140); Scan Indicated on CBC? Y/N NO
== END ==
PROVIDERS: Visit Provider Obstetrics & Gynecology
DX: Z34.83 Encounter for supervision of other normal pregnancy, third trimester (principal)
CPT/HCPCS: 36415; 82950; 85027

== ENCOUNTER → 2019-03-06 15:04 | Outpatient (CLI) | payer BC, MEDICAID, SELFPAY ==
[2018-11-28 09:35] VITALS: BMI 22.4
== END ==
PROVIDERS: Referring Provider Obstetrics & Gynecology; Visit Provider Obstetrics & Gynecology
DX: Z36.85 Encounter for antenatal screening for Streptococcus B (principal)
CPT/HCPCS: 87081

== ENCOUNTER 2019-04-06 10:03 | Outpatient (CLI) | payer BC, MEDICAID, SELFPAY ==
[2018-11-28 09:35] VITALS: BMI 22.4
[2019-04-06 10:05] VITALS: BMI 26.3
--- NOTE | 2019-04-15 21:47 | OB.TRI.NOTE ---
History of Present Illness Date of Service: 04/06/19 Was patient seen by the physician?: Yes Reason For Visit: NST Date of Service: 04/06/19 Final GILES: 03/30/19 Gestational age: 41 Weeks and 0 Days History of Present Illness: 41-week intrauterine presents for routine nonstress test for postdatism. Allergies Penicillins Adverse Reaction (Verified 04/06/19 10:07) LETHARGY venlafaxine [From Effexor] Adverse Reaction (Verified 04/06/19 10:08) Vomiting - Pertinent Past Medical History Medical History: Past Medical History (Last Reviewed 11/28/18 @ 11:52 by Tyler Peter MD) Marfan syndrome (Chronic) Non-rheumatic mitral regurgitation (Chronic) Nonrheumatic mitral (valve) prolapse (Chronic) Nicotine dependence (Chronic) Anxiety and depression Surgical History: Past Surgical History (Last Reviewed 11/28/18 @ 11:52 by Tyler Peter MD) H/O LEEP NST - FHR Rate Baby A NST Reactive:: Yes FHR Category:: Category I Impression/Plan 41-week intrauterine with post status and for routine nonstress test. NST was reactive. Continuing present care.
== END 2019-04-06 10:35 | disposition home or self-care (01) ==
LOC: WPOUT 10:04 → WP 10:05
PROVIDERS: Referring Provider Obstetrics & Gynecology; Visit Provider Obstetrics & Gynecology
DX: O48.0 Post-term pregnancy (principal); Z3A.41 41 weeks gestation of pregnancy; Z88.0 Allergy status to penicillin; Q87.418 Marfan syndrome with other cardiovascular manifestations
CPT/HCPCS: 59025; 76815

== ENCOUNTER 2019-04-07 17:25 | Inpatient (IN) | payer BC, MEDICAID, SELFPAY ==
[2018-11-28 09:35] VITALS: BMI 22.4
[2019-04-06 10:05] VITALS: BMI 26.3
[2019-04-07 18:15] VITALS: BMI 26.8
[2019-04-07 18:19] LABS: Absolute Neutrophil Count 16.7 X10^3/uL (2.0-7.7); Basophil# 0.03 X10^3/uL; Basophil% 0.1 % (0-1); Eosinophil# 0.15 X10^3/uL; Eosinophils% 0.7 % (0-5); Hematocrit 35.9 % (37-47); Hemoglobin 12.3 g/dl (12.0-15.0); Lymphocyte % 12.9 % (19-41); Mean Corp Hgb Conc 34.3 g/gl (32-36); Mean Corpuscular Hgb 33.2 pg (27.0-32.0); Monocyte# 0.53 X10^3/uL; Monocyte% 2.6 % (0-10); Neutrophil # 16.73 X10^3/uL (2.7-7.7); Neutrophil % 83.3 % (47-70); Platelet Count 273 K/mm3 (150-450); RBC Distribution Width CV 14.2 % (11.6-14.6); RBC Distribution Width SD 50.6 fl (35.1-43.9); White Blood Count 20.1 K/mm3 (4.4-11.0)
[2019-04-07 18:20] LABS: Differential Indicated SCAN CRITERIA MET; POSITIVE COUNT NO; POSITIVE DIFFERENTIAL NO; POSITIVE MORPHOLOGY YES
[2019-04-07] MEDS: Lactated Ringers 1,000 ML 50 ML IV (18:33)
[2019-04-07 18:53] LABS: Anisocytosis RARE; Macrocytosis RARE; Platelet Estimate ADEQUATE (ADEQ)
[2019-04-07 18:54] LABS: Toxic Granulation RARE
[2019-04-07] MEDS: Ondansetron 4 MG/2 ML Vial IV (20:38)
[2019-04-07] MEDS: Nalbuphine 10 MG/ML Ampul IV (21:31)
[2019-04-07] MEDS: Oxytocin 30 units/NS 500 ml 30 UNITS/500 ML IV.SOLN 334 UNITS IV (22:30)
--- NOTE | 2019-04-07 22:43 | PCM.OPRPT ---
Vaginal Delivery Maternal Presentation: Active Labor, Spontaneous Rupture of Membranes Amniotic Membrane Rupture Type: Spontaneous at home Amniotic Fluid Description: Clear Final GILES: 03/30/19 Final GILES Source: US <20 weeks Gestational age: 41 Weeks and 1 Days doctor who attended delivery (if requested by OB): Mariaelena Jones - Postdatism Date of Procedure: 04/07/19 Pre-Operative Diagnosis: IUP Post-Operative Diagnosis: IUP Surgery/ Procedure Performed: Spontaneous Vaginal Delivery Type of Anesthesia: None Description of Procedure: Spontaneous vaginal delivery of a viable male infant with Apgars of 8/9 from an occiput anterior presentation with clear amniotic fluid and normal three-vessel placenta. No episiotomy. First-degree midline laceration repaired with 3-0 Rapide suture under local. 0.5 to 1 cm left labial laceration not repaired as was not bleeding. Sponges okay. Delivery physician: Ced Dorman MD. Presentation: Vertex Placental Delivery Description: Spontaneous Placenta Disposition: [facility] Cord Vessel Description: 3 Vessels Cord Gases drawn per routine: ABG Estimated Blood Loss: 250 cc A gender: Male (1 minute): 8 (5 minute): 9 Episiotomy Description: None Laceration: Midline, 1st degree - Also, 1 cm left labial laceration (not repaired) Medications given after delivery: IV Pitocin Complications: None
--- NOTE | 2019-04-07 22:46 | PCM.DCVAG ---
Discharge Diet: No Restrictions Discharge Activity: May Drive, May Shower, May Take a Tub Bath May resume sexual activity in: 4-6 weeks Additional Activity Instructions:: Nothing in the vagina for 4-6 weeks. You may return to work/school in 6 weeks. Call your doctor if you observe: Fever of 101 or Higher, Inability to urinate, Inability to have a bowel movement, Using more than one pad per hour Additional Instructions: If you experience any of the following, contact your healthcare provider. Bleeding that soaks a pad every hour for 2 hours Unrelieved incision or abdominal pain Swelling, redness, discharge or bleeding from your incision or episiotomy site Your incision begins to separate Problems urinating (including inability to urinate or burning while urinating). Visual changes Severe headache Flu-like symptoms Pain or redness in one of both of your breasts Pain, warmth, tenderness or swelling in your legs, especially the calf area Frequent nausea and vomiting Symptoms of depression or anxiety If you experience any of the following, call 911 or go to the nearest Emergency Room. Chest pain Problems breathing Seizure activity Partial or complete paralysis of a body part, slurred speech, weakness or drooping of the face, or a sudden inability to walk or hold your balance Allergies/Adverse Reactions: Allergies Penicillins Adverse Reaction (Verified 04/06/19 10:07) LETHARGY venlafaxine [From Effexor] Adverse Reaction (Verified 04/06/19 10:08) Vomiting Medications to take at Discharge vitamin,calcium,ynxgyexk-cjni-bjzhv acid tablet 1 tab PO DAILY 11/28/18 Valacyclovir HCl [Valtrex] 500 mg PO DAILY 04/06/19 Please Follow Up With: Ced Dorman MD - [phone] When: Call to make an appointment with your doctor in 6 weeks. Primary Care Physician: Care Physician,No Primary [Primary Care Provider] - Test Results: Test results from this visit will be discussed in further detail at your follow-up appointment, if applicable.
--- NOTE | 2019-04-07 22:47 | DCINST_ITS ---
Discharge Diet: No Restrictions Discharge Activity: May Drive, May Shower, May Take a Tub Bath May resume sexual activity in: 4-6 weeks Additional Activity Instructions:: Nothing in the vagina for 4-6 weeks. You may return to work/school in 6 weeks. Call your doctor if you observe: Fever of 101 or Higher, Inability to urinate, Inability to have a bowel movement, Using more than one pad per hour Additional Instructions: If you experience any of the following, contact your healthcare provider. * Bleeding that soaks a pad every hour for 2 hours * Unrelieved incision or abdominal pain * Swelling, redness, discharge or bleeding from your incision or episiotomy site * Your incision begins to separate * Problems urinating (including inability to urinate or burning while urinating). * Visual changes * Severe headache * Flu-like symptoms * Pain or redness in one of both of your breasts * Pain, warmth, tenderness or swelling in your legs, especially the calf area * Frequent nausea and vomiting * Symptoms of depression or anxiety If you experience any of the following, call 911 or go to the nearest Emergency Room. * Chest pain * Problems breathing * Seizure activity * Partial or complete paralysis of a body part, slurred speech, weakness or drooping of the face, or a sudden inability to walk or hold your balance Allergies/Adverse Reactions: Allergies Penicillins Adverse Reaction (Verified 04/06/19 10:07) LETHARGY venlafaxine [From Effexor] Adverse Reaction (Verified 04/06/19 10:08) Vomiting Medications to take at Discharge vitamin,calcium,vjaxnmll-xokb-woqwh acid tablet 1 tab PO DAILY 11/28/18 Valacyclovir HCl [Valtrex] 500 mg PO DAILY 04/06/19 Please Follow Up With: Ced Dorman MD - [phone] When: Call to make an appointment with your doctor in 6 weeks. Primary Care Physician: Care Physician,No Primary [Primary Care Provider] - Test Results: Test results from this visit will be discussed in further detail at your follow- up appointment, if applicable.
[2019-04-07] MEDS: Oxytocin 30 units/NS 500 ml 30 UNITS/500 ML IV.SOLN 167 UNITS IV (23:00)
[2019-04-08] MEDS: 0.9% Saline Lock 10 ML Syringe IV (00:14)
[2019-04-08] MEDS: Ibuprofen 600 MG Tablet PO ×3 (03:40→17:00)
[2019-04-08 03:47] VITALS: BP 106/46; PULSE 66; RESP 18; TEMP 37
[2019-04-08 08:10] VITALS: BP 104/56; PULSE 69; RESP 18; TEMP 37
[2019-04-08] MEDS: Acetaminophen 500 MG Tablet 1000 MG PO ×2 (08:29→19:32)
--- NOTE | 2019-04-08 11:13 | PCM.PN.OB ---
Subjective: Patient without complaints. Breast-feeding going well. Wants to go home later today if baby is able to go. - Physical Exam Vital Signs Temp Pulse Resp BP 98.6 F 66 18 106/46 L 04/08/19 03:47 04/08/19 03:47 04/08/19 03:47 04/08/19 03:47 Weight: 211 lb 13.828 oz Body Mass Index (BMI) 26.8 Intake and Output for Last 24 Hours 04/06/19 04/07/19 04/08/19 23:59 23:59 23:59 Intake Total 819 / 819 Output Total 400 / 400 300 / 300 Balance 419 / 419 -300 / -300 Laboratory Tests Past 24 Hrs 04/07/19 04/07/19 18:00 18:00 WBC 20.1 H RBC 3.70 L Hgb 12.3 Hct 35.9 L MCV 97.0 MCH 33.2 H MCHC 34.3 RDW 14.2 RDW Differential 50.6 H Plt Count 273 MPV 9.0 Immature Gran % (Auto) 0.400 Neut % (Auto) 83.3 H Lymph % (Auto) 12.9 L [place] % (Auto) 2.6 Eos % (Auto) 0.7 Baso % (Auto) 0.1 Absolute Neuts (auto) 16.7 H Absolute Lymphs (auto) 2.60 Total Counted Not Reportable Diff Path Review May foll Toxic Granulation RARE Platelet Estimate ADEQUATE Anisocytosis RARE Macrocytosis RARE Blood Type O POSITIVE Antibody Screen NEGATIVE Medical Necessity - Tobacco Use Smoking Status: Current every day smoker Assessment/Plan All Active Problems (Last Reviewed 11/28/18 @ 11:52 by Tyler Peter MD) Tachycardia (Acute) 21 weeks gestation of (Acute) Doing well day #1 status post routine vaginal delivery. Will discharge to home with routine instructions if baby is able to be discharged.
[2019-04-08 12:15] VITALS: BP 98/43; PULSE 61; RESP 18; TEMP 36.8
--- NOTE | 2019-04-08 12:15 | NURSING ---
pt denies feeling dizzy or lightheaded at present
[2019-04-08 15:23] LABS: Pathologist Review Reviewed
[2019-04-08 16:30] VITALS: BP 105/41; PULSE 66; RESP 16; TEMP 36.8
[2019-04-08 19:36] VITALS: BP 104/45; PULSE 62; RESP 18; TEMP 36.4; O2SAT 97
[2019-04-08 23:26] VITALS: BP 118/64; PULSE 63; RESP 16; TEMP 36.6; O2SAT 96
== END 2019-04-08 23:46 | disposition home or self-care (01) | DRG 807 ==
PROVIDERS: Admitting Provider Obstetrics & Gynecology; Referring Provider Obstetrics & Gynecology; Visit Provider Obstetrics & Gynecology
DX: O48.0 Post-term pregnancy (principal); Z37.0 Single live birth; O70.0 First degree perineal laceration during delivery; Z3A.41 41 weeks gestation of pregnancy; O99.334 Smoking (tobacco) complicating childbirth; F17.200 Nicotine dependence, unspecified, uncomplicated
CPT/HCPCS: 59050; 85025; 86850; 86900; 99218; J7120; A4216; G0378; J2405

== ENCOUNTER → 2019-05-30 16:54 | Outpatient (CLI) | payer BC, MEDICAID, SELFPAY ==
[2019-05-30 18:15] LABS: Internal QC Validated? YES +Cl - CLEAR BKGD; Pregnancy, Serum, hCG Quali. NEGATIVE Negative; Progesterone Level 0.25 ng/mL (See Comment)
== END ==
PROVIDERS: Visit Provider Obstetrics & Gynecology
DX: Z30.430 Encounter for insertion of intrauterine contraceptive device (principal)
CPT/HCPCS: 36415; 84144; 84703

== ENCOUNTER → 2019-06-03 17:35 | Outpatient (CLI) | payer BC, MEDICAID, SELFPAY ==
[2019-06-03 20:48] LABS: Chlamydia Trachomatis by PCR Negative (Negative); Neisserai gonorrhoeae by PCR Negative (Negative); Probe Check PASS; Sample Adequacy Control PASS; Specimen Processing Control PASS
[2019-06-06 15:47] LABS: HPV APTIMA, High Risk Negative (Negative)
== END ==
PROVIDERS: Referring Provider Obstetrics & Gynecology; Visit Provider Obstetrics & Gynecology
DX: Z12.4 Encounter for screening for malignant neoplasm of cervix (principal); Z11.3 Encounter for screening for infections with a predominantly sexual mode of transmission
CPT/HCPCS: 87491; 87591; 88175; G0145

== ENCOUNTER → 2019-08-27 12:15 | Outpatient (CLI) | payer BC, MEDICAID, SELFPAY ==
[2019-08-27 08:38] VITALS: BMI 22.4
[2019-08-27 13:56] LABS: Anion Gap 4 (5-15); BUN 11 mg/dL (7-18); BUN/Creat Ratio 14.2 RATIO (10-20); Calcium,Total 9.6 mg/dL (8.5-10.1); Chloride 107 mmol/L (98-107); Creatinine, Serum 0.77 mg/dL (0.55-1.02); EST Glomerular Filtration Rate 90 mL/min (>60); Est Glom Filt Rate - Afr Amer 109 mL/min (>60); Glucose 81 mg/dL (74-106); Potassium 4.2 mmol/L (3.5-5.1); Sodium Level 137 mmol/L (136-145)
== END ==
PROVIDERS: Family Provider Family Medicine; PCP Family Medicine; Referring Provider Internal Medicine Cardiovascular Disease; Visit Provider Internal Medicine Cardiovascular Disease
DX: I34.1 Nonrheumatic mitral (valve) prolapse (principal)
CPT/HCPCS: 36415; 80048

== ENCOUNTER → 2019-09-05 13:16 | Outpatient (CLI) | payer BC, MEDICAID, SELFPAY ==
[2019-08-27 08:38] VITALS: BMI 22.4
--- NOTE | 2019-09-05 13:18 | CT_ITS ---
STUDY: CT CHEST WITH CONTRAST REASON FOR EXAM: Female, 33 years old. Family history of Marfan syndrome. Fatigue. Mitral valve prolapse. RADIATION DOSAGE (If Supplied By Facility): CTDIvol = ( 8.74 ) mGy, DLP = ( 379.02 ) mGycm TECHNIQUE: Transaxial imaging was performed following intravenous administration of IV Isovue 370 100. Multiplanar coronal and sagittal images were reformatted. Individualized dose optimization techniques were used for this CT. COMPARISON: None. FINDINGS: Minimal degree of right basilar atelectasis. There is no demonstrated pleural abnormality. Normal heart and pericardium. Normal mediastinum. Normal hilar regions. Normal enhanced pulmonary arteries. Normal aorta arch and descending thoracic aorta. Normal osseous structures. There is no demonstrated abnormality of the visualized upper abdomen. CT/Chest WITH Contrast IMPRESSION: Normal enhanced CT Chest examination. Electronically Signed: Ricardo Benjamin, at 11:40 EDT , Service support ,
== END ==
PROVIDERS: Family Provider Family Medicine; PCP Family Medicine; Referring Provider Internal Medicine Cardiovascular Disease; Visit Provider Internal Medicine Cardiovascular Disease
DX: I34.1 Nonrheumatic mitral (valve) prolapse (principal)
CPT/HCPCS: 71260; Q9967